=== PATIENT | female | born 1945 | race Caucasian/White ===

== ENCOUNTER 2021-02-02 10:59 | Outpatient (CLI) | payer MEDICARE, OTHER ==
[~2021-02-02 10:59] MED LIST: CIME400T PO; SENN1TAB61 PO
== END 2021-02-02 23:59 | disposition home or self-care (01) ==
LOC: CARD DIAG 10:59
PROVIDERS: ATTEND Internal Medicine Cardiovascular Disease
DX: I08.1 Rheumatic disorders of both mitral and tricuspid valves (principal); J44.9 Chronic obstructive pulmonary disease, unspecified
CPT/HCPCS: 93306